=== PATIENT | male | born 1990 | race Asian ===

== ENCOUNTER 2021-05-25 18:34 | Emergency (ER) | payer MEDICAID, OTHER ==
[~2021-05-25] VITALS: Ht 175.3 cm; Wt 81.2 kg
[2021-05-26 00:31] VITALS: BP 131/78
== END 2021-05-26 01:15 | disposition home or self-care (01) ==
LOC: ER 18:37
DX: S13.4XXA Sprain of ligaments of cervical spine, initial encounter (principal); V89.2XXA Person injured in unspecified motor-vehicle accident, traffic, initial encounter; Y93.I9 Activity, other involving external motion; Y92.89 Other specified places as the place of occurrence of the external cause; Y99.8 Other external cause status
CPT/HCPCS: 70450; 72040; 72125; 72128; 72131; 73030

== ENCOUNTER 2021-08-29 13:31 | Emergency (ER) | payer MEDICAID ==
[~2021-08-29] VITALS: Ht 175.3 cm; Wt 72.6 kg
[2021-08-29 13:36] VITALS: BP 123/79
== END 2021-08-29 16:07 | disposition left against medical advice (07) ==
LOC: ER 13:31
DX: R11.2 Nausea with vomiting, unspecified (principal); R19.7 Diarrhea, unspecified; M79.10 Myalgia, unspecified site; Z53.21 Procedure and treatment not carried out due to patient leaving prior to being seen by health care provider